=== PATIENT | male | born 1950 | race Caucasian/White ===

== ENCOUNTER 2017-03-07 13:07 | Emergency (ER) | payer OTHER, MEDICAID ==
[~2017-03-07] VITALS: Ht 175.3 cm; Wt 80.3 kg
--- NOTE | 2017-03-07 13:22 | NUR ---
TONY FROM HOME DT SOB. PATIENT IS AAO4, APPEARS IN NO APPARENT DISTRESS, RESPIRATION EVEN AND UNLABORED. PATIENT'S SKIN IS WARM TO TOUCH AND NON DIAPHORETIC, PATIENT IS AFEBRILE. VSS.
[2017-03-07 13:48] LABS: BASOPHILS % (AUTO) 0.5 % (0.0-2.0); EOSINOPHILS # (AUTO) 0.3 /CMM (0.0-0.7); EOSINOPHILS % (AUTO) 3.2 % (0.0-6.0); HEMATOCRIT 45 % (39-51); HEMOGLOBIN 14.7 g/dL (13.5-17.5); LYMPHOCYTES # (AUTO) 1.5 /CMM (0.8-4.8); LYMPHOCYTES % (AUTO) 16.7 % (20.0-44.0); MEAN CORPUSCULAR HEMOGLOBIN 29 PG (26.0-33.0); MEAN CORPUSCULAR HGB CONC 33 g/dl (31.0-36.0); MEAN CORPUSCULAR VOLUME 88 fL (80-96); MONOCYTES # (AUTO) 0.8 /CMM (0.1-1.30); MONOCYTES % (AUTO) 9.1 % (2.0-12.0); NEUTROPHILS # (AUTO) 6.3 /CMM (1.8-8.9); NEUTROPHILS % (AUTO) 70.5 % (43.0-81.0); PLATELET COUNT (AUTO) 294 /CMM (150-450); RDW COEFFICIENT OF VARIATION 12.9 (11.5-15.0); RED BLOOD CELL COUNT(AUTO) 5.09 MIL/uL (4.5-6.0); WHITE BLOOD COUNT (AUTO) 8.9 K/uL (4.3-11.0)
--- NOTE | 2017-03-07 13:48 | NUR ---
IV ACCESSED TO [facility] 20. BLOOD SAMPLE SENT TO LAB
--- NOTE | 2017-03-07 13:49 | NUR ---
HOUSING PROJECT MANAGER AT BS
[2017-03-07 13:57] LABS: CALCIUM, SERUM 8.6 mg/dL (8.5-10.1); CREATININE 1.4 mg/dL (0.6-1.3); POTASSIUM 4.2 mmol/L (3.5-5.1)
[2017-03-07 14:03] LABS: INR 1.11 (0.87-1.13); PROTHROMBIN TIME 11.6 SECS (9.5-12.7)
[2017-03-07 14:05] LABS: TROPONIN I 0.018 ng/mL (0.00-0.056)
[2017-03-07] MEDS ORDERED: IOHEXOL-350 100 ML VIAL IV ONE (14:26)
[2017-03-07] MEDS ORDERED: IV NS 0.9% 250 ML IV ONE (14:26)
[2017-03-07] MEDS ORDERED: CT SWABBABLE VALVE TRANS SET 1 EA INFUS.SET MC ONE (14:26)
[2017-03-07] MEDS ORDERED: IV NS 0.9% 500 ML BAG IV ONE (14:30)
[2017-03-07] MEDS ORDERED: IV NS 0.9% 500 ML IV ONE (14:38)
--- NOTE | 2017-03-07 15:25 | NUR ---
DR PRINCE ON THE PHONE WITH DR SANDERS
[2017-03-07] MEDS ORDERED: RIVAROXABAN 15 MG TABLET PO STA (15:29)
--- NOTE | 2017-03-07 15:52 | NUR ---
CALLED PHARMACY FOR MANNY
--- NOTE | 2017-03-07 16:33 | NUR ---
Patient discharged to home in stable condition. Written and verbal after care instructions given. Patient verbalizes understanding of instruction. IV removed. Catheter intact and site benign. Pressure and 4x4 applied to site. No bleeding noted.
[2017-03-07 16:34] VITALS: BP 145/70
== END 2017-03-07 16:35 | disposition home or self-care (01) ==
LOC: ER 13:10
DX: I26.99 Other pulmonary embolism without acute cor pulmonale (principal); E78.5 Hyperlipidemia, unspecified; I10 Essential (primary) hypertension; Z95.1 Presence of aortocoronary bypass graft; Z98.890 Other specified postprocedural states; Z88.1 Allergy status to other antibiotic agents
CPT/HCPCS: 36415; 71010; 71275; 80048; 83880; 84484; 85025; 85730; 93005; 99285; A4606; J7040; J7050; Q9967; Z7610

== ENCOUNTER 2018-06-07 19:46 | Emergency (ER) | payer OTHER, MEDICAID ==
[~2018-06-07] VITALS: Ht 175.3 cm; Wt 80.7 kg
[2018-06-07 19:46] VITALS: BP 116/58
--- NOTE | 2018-06-07 21:26 | NUR ---
pt discharged home in stable condition
== END 2018-06-07 21:28 | disposition home or self-care (01) ==
LOC: ER 19:48
DX: I83.811 Varicose veins of right lower extremity with pain (principal); Z86.718 Personal history of other venous thrombosis and embolism; I10 Essential (primary) hypertension; E78.5 Hyperlipidemia, unspecified; Z98.890 Other specified postprocedural states; Z88.1 Allergy status to other antibiotic agents
CPT/HCPCS: 99283; A4606 ×2; A6402; Z7610

== ENCOUNTER 2018-11-27 16:09 | Emergency (ER) | payer OTHER, MEDICAID ==
[~2018-11-27] VITALS: Ht 175.3 cm; Wt 89.8 kg
--- NOTE | 2018-11-27 16:10 | NUR ---
BIB SELF W C/O ON & OFF "SHARP PAIN" IN HIS XIPHOID AREA SINCE LAST NIGHT, ALSO C/O SWELLING R FOOT. TO ER BED 5, HOOKED TO MONITOR, EKG DONE. AWAITING MD HERBERT
--- NOTE | 2018-11-27 16:24 | NUR ---
DR NEW AT BEDSIDE
[2018-11-27] MEDS ORDERED: IV NS 0.9% 1,000 ML BAG IV ONE (16:30)
[2018-11-27 16:44] LABS: BASOPHILS % (AUTO) 0.7 % (0.0-2.0); EOSINOPHILS % (AUTO) 2.2 % (0.0-6.0); HEMATOCRIT 43 % (39-51); HEMOGLOBIN 14.3 g/dL (13.5-17.5); LYMPHOCYTES # (AUTO) 1.4 /CMM (0.8-4.8); LYMPHOCYTES % (AUTO) 23.9 % (20.0-44.0); MEAN CORPUSCULAR HGB CONC 34 g/dl (31.0-36.0); MEAN CORPUSCULAR VOLUME 90 fL (80-96); MONOCYTES # (AUTO) 0.4 /CMM (0.1-1.30); MONOCYTES % (AUTO) 7.2 % (2.0-12.0); NEUTROPHILS # (AUTO) 3.9 /CMM (1.8-8.9); PLATELET COUNT (AUTO) 208 /CMM (150-450); RED BLOOD CELL COUNT(AUTO) 4.75 MIL/uL (4.5-6.0)
[2018-11-27 17:03] LABS: ALANINE AMINOTRANSFERASE 32 U/L (12-78); ALBUMIN 3.4 g/dL (3.4-5.0); ALKALINE PHOSPHATASE 85 U/L (46-116); ASPARTATE AMINOTRANSFERASE 27 U/L (15-37); BILIRUBIN,DIRECT 0.2 mg/dL (0.0-0.2); BILIRUBIN,TOTAL 0.7 mg/dL (0.2-1.0); CALCIUM, SERUM 8.4 mg/dL (8.5-10.1); CARBON DIOXIDE 30 mmol/L (21-32); CHLORIDE 107 mmol/L (98-107); CREATININE 1.1 mg/dL (0.6-1.3); GLUCOSE 100 mg/dL (74-106); LIPASE 153 U/L (73-393); POTASSIUM 3.9 mmol/L (3.5-5.1); SODIUM SERUM 142 mmol/L (136-145); TOTAL PROTEIN, SERUM 6.5 g/dL (6.4-8.2); UREA NITROGEN, BLOOD 21 mg/dL (7-18)
[2018-11-27] MEDS ORDERED: CT SWABBABLE VALVE TRANS SET 1 EA INFUS.SET MC ONE (17:13)
[2018-11-27] MEDS ORDERED: IOHEXOL-350 100 ML VIAL IV ONE (17:13)
--- NOTE | 2018-11-27 17:28 | NUR ---
BACK FROM CTA FOR DISSECTION
--- NOTE | 2018-11-27 18:59 | NUR ---
IV removed. Catheter intact and site benign. Pressure and 4x4 applied to site. No bleeding noted.Patient discharged to home in stable condition. Written and verbal after care instructions given. Patient verbalizes understanding of instruction.
[2018-11-27 19:00] VITALS: BP 121/66
== END 2018-11-27 19:01 | disposition home or self-care (01) ==
LOC: ER 16:11
DX: R07.89 Other chest pain (principal); I10 Essential (primary) hypertension; E78.5 Hyperlipidemia, unspecified; F41.9 Anxiety disorder, unspecified; Z95.1 Presence of aortocoronary bypass graft; Z98.890 Other specified postprocedural states; Z88.1 Allergy status to other antibiotic agents; Z60.2 Problems related to living alone; Z95.5 Presence of coronary angioplasty implant and graft
CPT/HCPCS: 36415; 71045; 71275; 80048; 80076; 83690; 84484; 85025; 85730; 93005; 99284; A4606; J7030; Q9967

== ENCOUNTER 2019-01-13 19:22 | Emergency (ER) | payer MEDICARE, MEDICAID ==
[~2019-01-13] VITALS: Ht 175.3 cm; Wt 85.3 kg
--- NOTE | 2019-01-13 19:36 | NUR ---
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 PT AAOX4 NO ACUTE DISTRESS NOTED, RESP EVEN AND UNLABORED. SKIN WARM, NONDIAPHORETIC. PLACE PT ON CARDIAC MONITORING, CONTINUOUS POX, O2@2L/NC. PENDING ER MD HERBERT.
--- NOTE | 2019-01-13 19:40 | NUR ---
ER MD AT BEDSIDE TO EVAL PT WITH ORDERS RECEIVED. WILL CARRY OUT ORDERS.
[2019-01-13 19:50] LABS: BASOPHILS % (AUTO) 0.6 % (0.0-2.0); EOSINOPHILS % (AUTO) 2.4 % (0.0-6.0); HEMATOCRIT 43 % (39-51); HEMOGLOBIN 14.3 g/dL (13.5-17.5); LYMPHOCYTES % (AUTO) 27.4 % (20.0-44.0); MEAN CORPUSCULAR HGB CONC 34 g/dl (31.0-36.0); MEAN CORPUSCULAR VOLUME 88 fL (80-96); MONOCYTES # (AUTO) 0.5 /CMM (0.1-1.30); MONOCYTES % (AUTO) 6.8 % (2.0-12.0); NEUTROPHILS # (AUTO) 4.7 /CMM (1.8-8.9); NEUTROPHILS % (AUTO) 62.8 % (43.0-81.0); PLATELET COUNT (AUTO) 205 /CMM (150-450); RED BLOOD CELL COUNT(AUTO) 4.82 MIL/uL (4.5-6.0); WHITE BLOOD COUNT (AUTO) 7.5 K/uL (4.3-11.0)
[2019-01-13 19:57] LABS: CALCIUM, SERUM 8.5 mg/dL (8.5-10.1); CARBON DIOXIDE 29 mmol/L (21-32); CHLORIDE 101 mmol/L (98-107); GLUCOSE 105 mg/dL (74-106); POTASSIUM 4.1 mmol/L (3.5-5.1); SODIUM SERUM 136 mmol/L (136-145); UREA NITROGEN, BLOOD 19 mg/dL (7-18)
[2019-01-13] MEDS ORDERED: NITROGLYCERIN PACKET 1 GM PACKET ONE (19:58)
[2019-01-13] MEDS ORDERED: ASPIRIN 325 MG TABLET ONE (19:59)
[2019-01-13] MEDS ORDERED: ASPIRIN 325 MG TABLET PO ONE (20:00)
[2019-01-13] MEDS ORDERED: NITROGLYCERIN PACKET 1 GM PACKET TD ONE (20:00)
[2019-01-13 20:03] LABS: ALANINE AMINOTRANSFERASE 32 U/L (12-78); ALBUMIN 3.6 g/dL (3.4-5.0); ALKALINE PHOSPHATASE 88 U/L (46-116); ASPARTATE AMINOTRANSFERASE 26 U/L (15-37); BILIRUBIN,DIRECT 0.2 mg/dL (0.0-0.2); BILIRUBIN,TOTAL 0.8 mg/dL (0.2-1.0); TOTAL PROTEIN, SERUM 6.7 g/dL (6.4-8.2)
[2019-01-13] MEDS ORDERED: ASPIRIN 81 MG TAB.CHEW ONE (20:04)
--- NOTE | 2019-01-13 20:05 | NUR ---
WORKFORCE MANAGEMENT MANAGER AT BEDSIDE FOR CXR.
--- NOTE | 2019-01-13 20:07 | NUR ---
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 ER MD MADE AWARE AND CHANGED ORDER TO GIVE ASA 162MG PO.
--- NOTE | 2019-01-13 20:16 | NUR ---
ER MD AT BEDSIDE TALKING TO PT REGARDING LAB RESULT AND HOSPITAL ADMISSION. PT AND PT AGREED.
--- NOTE | 2019-01-13 20:16 | NUR ---
RN AT BEDSIDE TO MEDICATE PT.
[2019-01-13 20:18] VITALS: BP 121/67
--- NOTE | 2019-01-13 20:26 | NUR ---
CALLED HOUSE SUP FOR TELE BED
--- NOTE | 2019-01-13 21:01 | NUR ---
CALLED DR SANDERS AFTER HOURS LINE. LEFT A MESSAGE AND AWAITING HIS CALL BACK
--- NOTE | 2019-01-13 21:27 | NUR ---
TELE BED 315-2 GIVEN
--- NOTE | 2019-01-13 22:07 | NUR ---
PT TRANSPORTED TO RADIOLOGY FOR CT HEAD.
--- NOTE | 2019-01-13 23:38 | NUR ---
IV removed. Catheter intact and site benign. Pressure and 4x4 applied to site. No bleeding noted. Patient discharged to home in stable condition. Written and verbal after care instructions given. Patient verbalizes understanding of instruction. ambulatory with a steady gait noted. pt aaox4 no acute distress noted, resp even and unlabored. nitro paste removed from chest wall and wiped off pt's chest.
== END 2019-01-13 23:51 | disposition home or self-care (01) ==
LOC: ER 19:24
DX: R07.89 Other chest pain (principal); I10 Essential (primary) hypertension; E78.5 Hyperlipidemia, unspecified; R41.82 Altered mental status, unspecified; Z95.1 Presence of aortocoronary bypass graft; Z88.1 Allergy status to other antibiotic agents; Z60.2 Problems related to living alone
CPT/HCPCS: 36415; 70450; 71045; 80048; 80076; 84484 ×2; 85025; 85730; 87081; 93005; 99285; A4606

== ENCOUNTER 2019-04-02 18:38 | Emergency (ER) | payer MEDICARE, MEDICAID ==
[~2019-04-02] VITALS: Ht 175.3 cm; Wt 83.9 kg
[2019-04-02 18:44] VITALS: BP 124/70
== END 2019-04-02 19:40 | disposition home or self-care (01) ==
LOC: ER 18:44
DX: S61.211A Laceration without foreign body of left index finger without damage to nail, initial encounter (principal); I10 Essential (primary) hypertension; E78.5 Hyperlipidemia, unspecified; Z86.711 Personal history of pulmonary embolism; Z98.890 Other specified postprocedural states; Z60.2 Problems related to living alone; Z88.1 Allergy status to other antibiotic agents; W26.0XXA Contact with knife, initial encounter; Y93.89 Activity, other specified; Y92.89 Other specified places as the place of occurrence of the external cause; Y99.8 Other external cause status

== ENCOUNTER 2024-09-22 20:54 | Emergency (ER) | payer MEDICARE, MEDICAID ==
[~2024-09-22] VITALS: Ht 175.3 cm; Wt 77.1 kg
[2024-09-22 21:40] LABS: BASOPHILS % (AUTO) 0.4 % (0.0-2.0); EOSINOPHILS # (AUTO) 0.1 K/uL (0.0-0.7); EOSINOPHILS % (AUTO) 0.6 % (0.0-6.0); HEMATOCRIT 42 % (39-51); LYMPHOCYTES # (AUTO) 0.3 K/uL (0.8-4.8); LYMPHOCYTES % (AUTO) 3.3 % (20.0-44.0); MEAN CORPUSCULAR HEMOGLOBIN 30 PG (26.0-33.0); MEAN CORPUSCULAR HGB CONC 34 g/dl (31.0-36.0); MEAN CORPUSCULAR VOLUME 90 fL (80-96); MONOCYTES # (AUTO) 0.4 K/uL (0.1-1.30); MONOCYTES % (AUTO) 4.5 % (2.0-12.0); NEUTROPHILS % (AUTO) 91.2 % (43.0-81.0); PLATELET COUNT (AUTO) 243 K/uL (150-450); RED CELL DISTRIBUTION WIDTH 13.3 % (11.5-15.0); WHITE BLOOD COUNT (AUTO) 9.8 K/uL (4.3-11.0)
[2024-09-22 21:47] LABS: CALCIUM, SERUM 9.2 mg/dL (8.5-10.1); CARBON DIOXIDE 29 mmol/L (21-32); CHLORIDE 100 mmol/L (98-107); CREATININE 1.3 mg/dL (0.6-1.3); GLUCOSE 113 mg/dL (74-106); POTASSIUM 3.5 mmol/L (3.5-5.1); SODIUM SERUM 137 mmol/L (136-145); UREA NITROGEN, BLOOD 31 mg/dL (7-18)
[2024-09-22 21:52] LABS: ALANINE AMINOTRANSFERASE 24 U/L (12-78); ALBUMIN 3.7 g/dL (3.4-5.0); ALKALINE PHOSPHATASE 79 U/L (46-116); ASPARTATE AMINOTRANSFERASE 26 U/L (15-37); BILIRUBIN,DIRECT 0.2 mg/dL (0.0-0.2); BILIRUBIN,TOTAL 0.7 mg/dL (0.2-1.0); LIPASE 42 U/L (16-77)
[2024-09-22] MEDS ORDERED: IOHEXOL-300 100 ML VIAL IV ONE (21:52)
[2024-09-22] MEDS ORDERED: IV NS 0.9% 500 ML IV ONE (21:52)
[2024-09-22 21:53] LABS: INR 1.14 (0.91-1.10); PARTIAL THROMBOPLASTIN TIME 24.6 SEC (24.3-34.3); PROTHROMBIN TIME 11.6 SECS (9.2-11.1)
[2024-09-22 23:44] LABS: APPEARANCE,URINE SLIGHTLY CLOUDY (CLEAR); BILIRUBIN,URINE NEGATIVE (NEGATIVE); BLOOD, URINE 1+ Ery/uL (NEGATIVE); COLOR,URINE YELLOW (YELLOW); KETONES,URINE TRACE mg/dL (NEGATIVE); LEUKOCYTE ESTERASE ,URINE NEGATIVE (NEGATIVE); NITRITE, URINE NEGATIVE (NEGATIVE); PROTEIN,URINE NEGATIVE (NEGATIVE); UGLUCOSE NEGATIVE (NEGATIVE); UROBILINOGEN,URINE 0.2 EU/dL (0.2)
[2024-09-22] MEDS ORDERED: MORPHINE SULFATE INJ 2 MG/ML DISP.SYRIN ONE (23:50)
[2024-09-22] MEDS ORDERED: ONDANSETRON HCL/PF 4 MG/2 ML VIAL ONE (23:50)
[2024-09-22] MEDS: MORPHINE SULFATE INJ 2 MG/ML DISP.SYRIN IV ONE (23:54)
[2024-09-22] MEDS: ONDANSETRON HCL/PF - ER 4 MG/2 ML VIAL IV ONE (23:54)
[2024-09-22] MEDS ORDERED: TAMS-12 PO (23:57)
[2024-09-23 00:29] LABS: WBC,URINE 0-2 /HPF (0-3)
[2024-09-23 00:30] VITALS: BP 137/75; TEMP 98.4; O2SAT 97
[2024-09-23 00:30] LABS: ADD URINE CULTURE NO; BACTERIA,URINE 1+ /HPF (None Seen); SQUAMOUS EPITHELIAL CELL,UR 0-2 /HPF (None Seen); URINE AMORPHOUS URATE Moderate /HPF (None Seen)
[2024-09-23] MEDS ORDERED: SULF1TAB48 PO (01:37)
== END 2024-09-23 00:30 | disposition home or self-care (01) ==
LOC: ER 20:56 → MED 23:51 → UNDOADMIN 23:51 → ER 09-23 00:30
DX: N13.2 Hydronephrosis with renal and ureteral calculous obstruction (principal); E78.5 Hyperlipidemia, unspecified; I10 Essential (primary) hypertension; I25.10 Atherosclerotic heart disease of native coronary artery without angina pectoris; Z95.1 Presence of aortocoronary bypass graft; Z79.899 Other long term (current) drug therapy; Z88.1 Allergy status to other antibiotic agents
CPT/HCPCS: 99285; 74177; 96374; 96375; 85025; 80048; 83690; 80076; 81001; 36415; 85730; J2405 ×2; J7040; J2270; Q9967; G0378

== ENCOUNTER 2025-03-22 15:02 | Emergency (ER) | payer MEDICARE, MEDICAID ==
[~2025-03-22] VITALS: Ht 175.3 cm; Wt 76.7 kg
[~2025-03-22 15:02] MED LIST: SULF1TAB48 PO; TAMS-12 PO
[2025-03-22 15:09] VITALS: BP 102/54; TEMP 98.1; O2SAT 75
== END 2025-03-22 15:50 | disposition home or self-care (01) ==
LOC: ER 15:02
DX: D68.8 Other specified coagulation defects (principal); E78.5 Hyperlipidemia, unspecified; I10 Essential (primary) hypertension; Z85.828 Personal history of other malignant neoplasm of skin; Z86.711 Personal history of pulmonary embolism; Z88.1 Allergy status to other antibiotic agents; Z79.899 Other long term (current) drug therapy; Z60.2 Problems related to living alone

== ENCOUNTER 2025-06-15 22:58 | Inpatient (IN) | payer MEDICARE, MEDICAID ==
[~2025-06-15] VITALS: Ht 175.3 cm; Wt 76.0 kg
[2025-06-16 00:42] LABS: PLATELET COUNT (AUTO) 201 K/uL (150-450); RED BLOOD CELL COUNT(AUTO) 4.41 MIL/uL (4.5-6.0); RED CELL DISTRIBUTION WIDTH 14.1 % (11.5-15.0); WHITE BLOOD COUNT (AUTO) 6.1 K/uL (4.3-11.0)
[2025-06-16 00:52] LABS: INR 1.51 (0.91-1.10)
[2025-06-16 00:58] LABS: CALCIUM, SERUM 8.5 mg/dL (8.5-10.1); CREATININE 1.0 mg/dL (0.6-1.3); SODIUM SERUM 139.0 mmol/L (136-145); UREA NITROGEN, BLOOD 32.0 mg/dL (7-18)
[2025-06-16 01:12] LABS: ASPARTATE AMINOTRANSFERASE 25.0 U/L (15-37); NT-PRO BNP 302.0 pg/mL (0-125); TOTAL PROTEIN, SERUM 6.5 g/dL (6.4-8.2)
[2025-06-16 03:30] VITALS: BP 124/70; TEMP 98; O2SAT 98
[2025-06-16] MEDS ORDERED: ONDANSETRON HCL/PF 4 MG/2 ML VIAL IVP PRN (04:30)
[2025-06-16] MEDS ORDERED: DOSING PER PHARMACY-ZOSYN IV 1 EA EA XX PRN (04:30)
[2025-06-16] MEDS ORDERED: MAG HYDROX/AL HYDROX/SIMETH 30 ML UDC PO PRN (04:30)
[2025-06-16] MEDS ORDERED: ACETAMINOPHEN 325 MG TABLET PO PRN (04:30)
[2025-06-16] MEDS ORDERED: MAGNESIUM HYDROXIDE 30 ML UDC PO PRN (04:30)
[2025-06-16] MEDS: IV NS 0.9% 1,000 ML IV PRN (05:10)
[2025-06-16] MEDS ORDERED: PIPERACI/TAZO 3.375GM/D5W 50ML PB IV ONE (05:13)
[2025-06-16] MEDS: ZOSYN IVPB 3.375 G in IV D5W 50ml IV ONE (05:15)
[2025-06-16] MEDS ORDERED: ENAL2.5T17 PO (06:13)
[2025-06-16] MEDS ORDERED: RIVA10TA PO (06:13)
[2025-06-16] MEDS ORDERED: CHLO25TA2 PO (06:13)
[2025-06-16] MEDS ORDERED: BUDE10.2 INH (06:13)
[2025-06-16] MEDS ORDERED: ATEN25TA PO (06:13)
[2025-06-16] MEDS ORDERED: ATOR40TA PO (06:13)
[2025-06-16] MEDS ORDERED: ASPI-1169 PO (06:13)
[2025-06-16 07:30] VITALS: BP 114/63; TEMP 97.9; O2SAT 98
[2025-06-16 08:01] LABS: PLATELET COUNT (AUTO) 192 K/uL (150-450); RED BLOOD CELL COUNT(AUTO) 4.59 MIL/uL (4.5-6.0); RED CELL DISTRIBUTION WIDTH 14.1 % (11.5-15.0); WHITE BLOOD COUNT (AUTO) 5.8 K/uL (4.3-11.0)
[2025-06-16 08:06] LABS: INR 1.26 (0.91-1.10)
[2025-06-16 08:11] LABS: ASPARTATE AMINOTRANSFERASE 21.0 U/L (15-37); CALCIUM, SERUM 8.5 mg/dL (8.5-10.1); CREATININE 0.9 mg/dL (0.6-1.3); PHOSPHORUS 2.8 mg/dL (2.5-4.9); SODIUM SERUM 138.0 mmol/L (136-145); TOTAL PROTEIN, SERUM 6.4 g/dL (6.4-8.2); UREA NITROGEN, BLOOD 25.0 mg/dL (7-18)
[2025-06-16 08:17] LABS: IRON, SERUM 58.0 ug/dl (50-175)
[2025-06-16] MEDS ORDERED: ENALAPRIL MALEATE (5 MG) 5 MG TABLET PO SCH (09:00)
[2025-06-16] MEDS: PIPERACILLIN /TAZOBACTAM 3.375 G in IV D5W 100 ML IV SCH (09:11)
[2025-06-16] MEDS: PANTOPRAZOLE 40 MG VIAL IV SCH (09:11)
[2025-06-16] MEDS: ENALAPRIL MALEATE (10 MG) 10 MG TABLET PO SCH (10:11)
[2025-06-16 10:49] LABS: APPEARANCE,URINE SLIGHTLY CLOUDY (CLEAR); BLOOD, URINE NEGATIVE Ery/uL (NEGATIVE); LEUKOCYTE ESTERASE ,URINE NEGATIVE (NEGATIVE); NITRITE, URINE NEGATIVE (NEGATIVE); UGLUCOSE NEGATIVE (NEGATIVE)
[2025-06-16 11:42] LABS: ADD URINE CULTURE YES; SQUAMOUS EPITHELIAL CELL,UR Few /HPF (None Seen); TRIPLE PHOSPHATE CRYSTAL,UR Many /HPF (None Seen)
[2025-06-16 11:43] LABS: URINE AMORPHOUS PHOSPHATES Many /HPF (None Seen)
[2025-06-16 16:00] VITALS: BP 105/61; TEMP 98.1; O2SAT 96
[2025-06-16] MEDS: BUDESONIDE RESPULE INH 0.5 MG/2 ML AMPUL.NEB HHN SCH (17:00)
[2025-06-16] MEDS: ALBUTEROL FS 2.5 MG/3 ML VIAL.NEB NEB SCH (19:30)
[2025-06-16 20:25] VITALS: BP 95/65; TEMP 97.5; O2SAT 99
[2025-06-16] MEDS: ATORVASTATIN 40 MG TABLET PO SCH (21:03)
[2025-06-16] MEDS: RIVAROXABAN 10 MG TABLET PO SCH (21:04)
[2025-06-16] MEDS: ATENOLOL 25 MG TABLET PO SCH (21:05)
[2025-06-16] MEDS ORDERED: Medication Not On Formulary EA (Chlorthalidone 25 MG) PO SCH (22:00)
[2025-06-17 07:00] LABS: PLATELET COUNT (AUTO) 204 K/uL (150-450); RED BLOOD CELL COUNT(AUTO) 4.77 MIL/uL (4.5-6.0); RED CELL DISTRIBUTION WIDTH 14.5 % (11.5-15.0); WHITE BLOOD COUNT (AUTO) 5.9 K/uL (4.3-11.0)
[2025-06-17 07:13] LABS: CALCIUM, SERUM 8.5 mg/dL (8.5-10.1); CREATININE 0.9 mg/dL (0.6-1.3); PHOSPHORUS 3.1 mg/dL (2.5-4.9); SODIUM SERUM 141.0 mmol/L (136-145); UREA NITROGEN, BLOOD 10.0 mg/dL (7-18)
[2025-06-17 08:00] VITALS: BP 116/74; TEMP 97.3; O2SAT 96
[2025-06-17] MEDS: PANTOPRAZOLE 40 MG TABLET.DR PO SCH (09:01)
[2025-06-17 15:43] LABS: OCCULT BLOOD STOOL POSITIVE (NEGATIVE)
[2025-06-17 16:09] VITALS: BP_SYST 140; BP_SYST 96; BP_DIAS 65; BP_DIAS 73; TEMP 97.5; O2SAT 94; O2SAT 96
[2025-06-17 20:00] VITALS: BP 115/64; TEMP 97.7; O2SAT 100
[2025-06-18 08:08] VITALS: O2SAT 97
[2025-06-18 08:09] VITALS: BP 115/65
[2025-06-18] MEDS ORDERED: LACT1CAP72 PO (10:11)
[2025-06-18] MEDS ORDERED: METR500T PO (10:11)
[2025-06-18] MEDS ORDERED: CIPR-262 PO (10:11)
== END 2025-06-18 12:30 | disposition home or self-care (01) | DRG 392 ==
LOC: ER 23:01 → MED 06-16 00:59
PROVIDERS: ADMIT Internal Medicine; ATTEND Internal Medicine
DX: K52.9 Noninfective gastroenteritis and colitis, unspecified (principal); I10 Essential (primary) hypertension; E78.5 Hyperlipidemia, unspecified; Z85.46 Personal history of malignant neoplasm of prostate; Z95.1 Presence of aortocoronary bypass graft; I25.10 Atherosclerotic heart disease of native coronary artery without angina pectoris; Z86.711 Personal history of pulmonary embolism; Z79.01 Long term (current) use of anticoagulants; J44.9 Chronic obstructive pulmonary disease, unspecified; K76.89 Other specified diseases of liver; Z98.890 Other specified postprocedural states; Z88.1 Allergy status to other antibiotic agents; Z88.8 Allergy status to other drugs, medicaments and biological substances; Z79.82 Long term (current) use of aspirin; Z79.899 Other long term (current) drug therapy; C44.90 Unspecified malignant neoplasm of skin, unspecified; Z79.51 Long term (current) use of inhaled steroids; K59.00 Constipation, unspecified
CPT/HCPCS: 36415; 71045-TC; 80048-TC; 80053-TC; 80076-TC; 81001; 82272-TC; 83540-TC; 83735-TC; 83880; 84100-TC; 84484-TC; 85025-TC; 85610-TC; 85730-TC; 87086-TC; 94799-TC; A4223; G0378; J2470; J2543; J7030; J7060